=== PATIENT | male | born 1975 | race Caucasian/White ===

== ENCOUNTER 2016-07-17 00:21 | Emergency (ER) | payer OTHER ==
[~2016-07-17] VITALS: Ht 180.3 cm; Wt 65.0 kg
[~2016-07-17 00:21] MED LIST: MELO15TA2 PO
[2016-07-17 00:28] VITALS: BP 115/71; PULSE 87; RESP 18; TEMP 98.5; O2SAT 96
[2016-07-17] MEDS ORDERED: TETANUS/DIPHTHERIA TOXOID ADULT 0.5 ML VIAL IM ONE (01:00)
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
[2016-07-17] MEDS ORDERED: IBUP-232 PO (01:37)
[2016-07-17] MEDS ORDERED: CEPH-460 PO (01:37)
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
--- NOTE | 2016-07-17 02:33 | PD ---
Physical Exam Narrative Patient was seen by my physician assistant banquet manager and signed out to me. Data Data Last Documented VS Vital Signs Date Time Temp Pulse Resp B/P Pulse Ox O2 Delivery O2 Flow Rate FiO2 07/17/16 00:28 98.5 87 18 115/71 96 Orders Hand, Limited (2vws) (07/17/16 ) Tetanus/Diphtheria Tox Adult (Tetanus/Di (07/17/16 01:00) Wound Care (07/17/16 01:35) MDM Supervised Visit with MINESH: Yes Interpretation(s) 2 33 AM. X-ray of the head shows no acute bony injury. Diagnosis Primary Impression: Laceration of left hand Qualified Code: S61.412A - Laceration of left hand, initial encounter Referrals: Primary Care Physician Patient Instructions: General Instructions, Acute Wound Care (ED) Departure Forms: Tests/Procedures Additional Instruction: Keep the area clean and dry You may shower Sutures are to be removed in 10 days. This can be done in the emergency department or at your primary care provider's office Return immediately to the emergency department with any acute worsening of symptoms Scripts Ibuprofen 600 Mg [id number] Mg PO Q6H PRN (Pain/Inflammation) #30 TAB Ref 0 Prov:Mamie Griffin 07/17/16 Cephalexin (Keflex)500 Mg [id number] Mg PO Q6H 5 Days Ref 0 Prov:Mamie Griffin 07/17/16 Condition: Stable Bernard Hopkins MD Jul 17, 2016 02:33
== END 2016-07-17 02:39 | disposition home or self-care (01) ==
LOC: NEPE 00:21
DX: S61.412A Laceration without foreign body of left hand, initial encounter (principal); F17.210 Nicotine dependence, cigarettes, uncomplicated; Z23 Encounter for immunization; Y08.89XA Assault by other specified means, initial encounter; Y93.89 Activity, other specified; Y92.89 Other specified places as the place of occurrence of the external cause; Y99.8 Other external cause status
CPT/HCPCS: 12001; 73120; 90471; 90714

== ENCOUNTER 2016-10-27 16:36 | Emergency (ER) | payer OTHER, MEDICAID ==
[~2016-10-27 16:36] MED LIST changes: +CEPH-460 PO; +IBUP-232 PO; -MELO15TA2 PO
[2016-10-27 16:40] VITALS: BP 141/76; PULSE 74; RESP 24; TEMP 98.4; O2SAT 99
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
[2016-10-27] MEDS ORDERED: ONDANSETRON HCL 4 MG/2 ML VIAL IV PUSH ONE (18:45)
[2016-10-27] MEDS ORDERED: SODIUM CHLOR 0.9% 1000 ML INJ 1,000 ML IV ONE (18:45)
[2016-10-27] MEDS ORDERED: ORPHENADRINE INJ 60 MG/2 ML AMP IV ONE (18:45)
[2016-10-27] MEDS ORDERED: MORPHINE SULFATE 4 MG/ML INJ IV PUSH ONE (19:00)
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
[2016-10-27] MEDS ORDERED: IOHEXOL 350 MG/ML 10 ML VIAL (for RAD DIAG) IV ONE (19:16)
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
[2016-10-27] MEDS ORDERED: PERC7.5T13 PO (19:44)
[2016-10-27] MEDS ORDERED: CYCL1TAB29 PO (19:59)
[2016-10-27] MEDS ORDERED: IBUP800T23 PO (19:59)
[2016-10-27] MEDS ORDERED: LIDO1LOT TOPICAL (20:15)
[2016-10-27 20:34] VITALS: BP 128/71; PULSE 95; RESP 20; O2SAT 96
== END 2016-10-27 20:35 | disposition home or self-care (01) ==
LOC: NEPD 16:36
DX: S40.812A Abrasion of left upper arm, initial encounter (principal); S40.811A Abrasion of right upper arm, initial encounter; S30.810A Abrasion of lower back and pelvis, initial encounter; S80.212A Abrasion, left knee, initial encounter; S80.211A Abrasion, right knee, initial encounter; V23.4XXA Motorcycle driver injured in collision with car, pick-up truck or van in traffic accident, initial encounter; Z72.0 Tobacco use
CPT/HCPCS: 70450; 71010; 71260; 72125; 72131; 73564; 74177; 96361; 96374; 96375; 99284; J2270; J2360; J2405; J7030; Q9967